=== PATIENT | female | born 1995 | race African-American/Black ===

== ENCOUNTER 2024-08-10 13:16 | Emergency (ER) | payer OTHER ==
[2024-08-10 13:27] VITALS: BMI 36.3
[2024-08-10] MEDS ORDERED: ALBUTEROL SO4 2.5/IPRATROPIUM 0.5 INH SOL 3 ML VIAL.NEB. NEB ONE (14:17)
[2024-08-10] MEDS: ALBUTEROL SO4 2.5/IPRATROPIUM 0.5 INH SOL 3 ML VIAL.NEB. NEB ONE (14:25)
[2024-08-10] MEDS: SODIUM CHLORIDE 1,000 ML IV ONE (15:41)
[2024-08-10 15:50] LABS: HEMATOCRIT 34.2 % (32.4-45.2); HEMOGLOBIN 11.2 G/dL (10.7-15.3); MCH 30.7 pg (25.7-33.7); MCHC 32.9 g/dl (32.0-36.0); MEAN CELL VOLUME 93.5 fl (80-96); MEAN PLT VOLUME 9.7 fl (7.5-11.1); PLATELET COUNT 332.5 10^3/uL (134-434); RBC 3.66 10^6/uL (3.60-5.2); RDW 14.5 % (11.6-15.6); WHITE BLOOD COUNT 6.6 10^3/uL (4.0-10.8)
[2024-08-10 15:53] LABS: PLATELET ESTIMATE ADEQUATE
[2024-08-10 16:31] LABS: HIV INTERPRETATION NEGATIVE (NEGATIVE)
[2024-08-10 16:51] LABS: ALBUMIN 4.3 g/dl (3.4-5.0); BILIRUBIN,TOTAL 0.2 mg/dl (0.2-1); CALCIUM 9.5 mg/dl (8.5-10.1); CREATININE 0.9 mg/dl (0.6-1.3); POTASSIUM 4.1 mmol/L (3.5-5.1); TOT PROT 6.9 g/dl (6.4-8.2)
[2024-08-10 17:18] VITALS: BP 109/50; PULSE 99; RESP 18; TEMP 98.1
== END 2024-08-10 18:27 | disposition home or self-care (01) ==
LOC: FER 13:16
PROC: 3E0337Z Introduction of Electrolytic and Water Balance Substance into Peripheral Vein, Percutaneous Approach (ICD-10-PCS; principal; 2024-08-10)
PROC: 3E0F7GC Introduction of Other Therapeutic Substance into Respiratory Tract, Via Natural or Artificial Opening (ICD-10-PCS; 2024-08-10)
DX: R07.89 Other chest pain (principal); R06.02 Shortness of breath; R00.0 Tachycardia, unspecified; R11.0 Nausea; Z20.822 Contact with and (suspected) exposure to COVID-19
CPT/HCPCS: 0241U-QW; 36415; 71046-TC-FY; 80053; 85027; 85379; 86803; 87389; 93005; 94640; 96360; 99285-25